=== PATIENT | male | born 1970 | race Two or more races ===

== ENCOUNTER 2023-01-11 13:09 | Emergency (ER) | payer MEDICAID, MEDICARE ==
[~2023-01-11] VITALS: Ht 175.3 cm; Wt 99.8 kg
[~2023-01-11 13:09] MED LIST: TAMS-11 PO
[2023-01-11 13:27] VITALS: BP_SYST 126
--- NOTE | 2023-01-11 13:27 | NUR ---
Patient to ER bed H1 to gown for evaluation. Side rails up.
--- NOTE | 2023-01-11 13:28 | NUR ---
PT BIB INVESTIGATIVE ASSISTANT FOR BUMP TO LEFT SIDE OF NECK WITH PAIN. PT IS AMBULATORY, [id number], VSS
--- NOTE | 2023-01-11 13:29 | NUR ---
ER DR. RIZO EXAMINING PT
[2023-01-11] MEDS ORDERED: LIDOCAINE 1% 10 MG/ML, 20 ML MDV INJ ONE (13:30)
[2023-01-11 14:02] VITALS: BP_SYST 126
--- NOTE | 2023-01-11 14:02 | NUR ---
Patient given written and verbal discharge instructions and verbalizes understanding. ER MD discussed with patient the results and treatment provided. Patient in stable condition. ID arm band removed. NO Rx given. Patient educated on pain management and to follow up with PMD. Pain Scale 0/10. Opportunity for questions provided and answered. Medication side effect fact sheet provided.
== END 2023-01-11 14:02 ==
LOC: SED 13:09
DX: Z02.89 Encounter for other administrative examinations (principal); L02.01 Cutaneous abscess of face; Z79.899 Other long term (current) drug therapy
CPT/HCPCS: 99283; 10060; J2001